=== PATIENT | female | born 1980 | race African-American/Black ===

== ENCOUNTER 2019-08-06 14:07 | Emergency (ER) | payer OTHER, MEDICARE, SELFPAY ==
--- NOTE | ~2019-08-06 | CT_ITS ---
EXAMINATION: CT cervical spine wo con DATE: 08/06/2019 15:29 INDICATION: Neck pain TECHNIQUE: Computed tomography (CT) of the cervical spine was performed without intravenous contrast. The dose-length product (DLP) was 476.19 mGy-cm. Automated exposure control and iterative reconstruc tion technique were employed. COMPARISON: None FINDINGS: There is reversal of the normal cervical lordosis. No fracture, dislocation, or subluxation is identified. The vertebral body heights and alignment are normal. The odontoid is intact. The prev ertebral soft tissues are normal. IMPRESSION: 1. Normal cervical spine. Reviewed, dictated and finalized at location A. IMPRESSION: 1. Normal cervical spine.
--- NOTE | ~2019-08-06 | CT_ITS ---
EXAMINATION: CT brain wo con INDICATION: Head injury COMPARISON: None TECHNIQUE: Standard unenhanced head CT. The dose-length product (DLP) was 529.67 mGy-cm. The mA was a djusted according to patient size. Iterative reconstruction technique was employed. FINDINGS: There is no intracranial hemorrhage, acute infarction, or abnormal mass lesion. The ventric les are normal. There is no abnormal mass effect or midline shift. The hidalgo-white matter differentiat ion is normal. The basal cisterns are patent. The orbits are normal. The paranasal sinuses, mastoids and calvarium are normal. IMPRESSION: 1. No acute intracranial abnormality. Reviewed, dictated and finalized at location A.
[2019-08-06 14:20] VITALS: BP 142/83; PULSE 102; RESP 18; TEMP 36.3; O2SAT 97
--- NOTE | 2019-08-06 15:45 | ED.GENADULT ---
HPI - General Adult General Chief complaint: Head Injury Stated complaint: head injury, ceiling fell on it Time Seen by Provider: 08/06/19 14:53 Source: RN notes reviewed History of Present Illness HPI narrative: Patient presents emergency department from home for headache. Patient states that approximately 2 hours ago she closed the door to the bathroom when a punching the door part of the ceiling fell down striking her head. She states that since that time she has had pain in her head as well as neck pain. She is unsure of loss of consciousness. She denies any vision changes numbness or tingling in the extremities chest pain shortness of breath or any other symptoms. States she is taking no pain medication for the symptoms Related Data Allergies Allergy/AdvReac Type Severity Reaction Status Date / Time No Known Allergies Allergy Mild Verified 08/06/19 14:08 Review of Systems Review of Systems: Narrative: Gen.: Denies fevers or chills Eyes: Denies eye pain or visual change ENT: Denies congestion Respiratory: Denies shortness of breath or cough CV: Denies chest pain or palpitations GI: Denies abdominal pain nausea, emesis or diarrhea denies burning, urgency, frequency or hematuria Musculoskeletal: Reports neck pain Neuro: Denies numbness, tingling, weakness or focal weakness, reports headache Skin: Denies rash Except as documented, all other systems reviewed and negative [facility] Past Medical History Medical History (Updated 08/06/19 @ 15:48 by Cody Lopez DO) COPD (chronic obstructive pulmonary disease) Social History Social History (Updated 08/06/19 @ 15:47 by Cody Lopez DO) Smoking status: Never smoker Substance use type: marijuana Gender identity (if verbalized by the patient): Female Exam Narrative: Exam Narrative: APPEARANCE: No acute distress, nontoxic, resting in bed EYES: EOMI HEENT: Normocephalic, atraumatic, OMM Neck: C-collar in place, supple, no midline chest palpation, tender palpation bilateral paravertebral muscles C5-7 RESPIRATORY: No respiratory distress Clear to auscultation bilaterally with no rhonchi wheezing or rales. CARDIOVASCULAR: Regular rate and rhythm without murmurs rubs or gallops. ABDOMINAL: Soft, nontender, nondistended, no rebound or guarding MUSCULOSKELETAl: Moves all extremities. No clubbing, cyanosis or edema. NEURO: Awake and alert. Following commands, speech normal, no focal deficits SKIN:: Warm, dry. No rashes lesions or abrasions PSYCHIATRIC: Normal affect/mood, Course Course Emergency Course: Discussed with patient results of workup and diagnosis. Discussed need for follow-up with primary care, proper use of medication, and reasons to return to the emergency department. Patient understands and agrees to current treatment plan Vital Signs Vital signs: Vital Signs Temperature 97.3 F L 08/06/19 14:20 Pulse Rate 102 H 08/06/19 14:20 Respiratory Rate 18 08/06/19 14:20 Blood Pressure 142/83 H 08/06/19 14:20 Pulse Oximetry 97 08/06/19 14:20 Temperature 97.3 F L 08/06/19 14:20 Pulse Rate 102 H 08/06/19 14:20 Respiratory Rate 18 08/06/19 14:20 Blood Pressure 142/83 H 08/06/19 14:20 Pulse Oximetry 97 08/06/19 14:20 Medical Decision Making Vital Signs Vital Signs: Vital Signs Temperature 97.3 F L 08/06/19 14:20 Pulse Rate 102 H 08/06/19 14:20 Respiratory Rate 18 08/06/19 14:20 Blood Pressure 142/83 H 08/06/19 14:20 Pulse Oximetry 97 08/06/19 14:20 Temperature 97.3 F L 08/06/19 14:20 Pulse Rate 102 H 08/06/19 14:20 Respiratory Rate 18 08/06/19 14:20 Blood Pressure 142/83 H 08/06/19 14:20 Pulse Oximetry 97 08/06/19 14:20 Imaging Data Radiologist's impression: ITS Impressions Head CT 08/06/19 15:31 IMPRESSION: 1. No acute intracranial abnormality. Cervical Spine CT 08/06/19 15:36 IMPRESSION: 1. Normal cervical spine. Discharge Plan Discharge Clini
[2019-08-06] MEDS: IBUPROFEN 600 MG TABLET PO (16:15)
[2019-08-06 16:28] VITALS: BP 145/105; PULSE 94; RESP 20; O2SAT 100
== END 2019-08-06 16:29 | disposition home or self-care (01) ==
PROVIDERS: Emergency Provider Emergency Medicine
DX: S00.93XA Contusion of unspecified part of head, initial encounter (principal); S16.1XXA Strain of muscle, fascia and tendon at neck level, initial encounter; J44.9 Chronic obstructive pulmonary disease, unspecified; W20.8XXA Other cause of strike by thrown, projected or falling object, initial encounter
CPT/HCPCS: 70450; 72125; 99284; A9270

== ENCOUNTER 2021-06-16 06:13 | Outpatient (RCR) | payer MEDICARE, SELFPAY | END 2021-09-05 10:33 | disposition home or self-care (01) | LOC: ANHDMC 06:13 | PROVIDERS: Visit Provider Family Medicine | DX: E11.65 Type 2 diabetes mellitus with hyperglycemia (principal) | CPT/HCPCS: 99199 ==